=== PATIENT | female | born 1985 | race Caucasian/White ===

== ENCOUNTER 2019-05-18 19:25 | Emergency (ER) | payer OTHER ==
[2019-05-18] MEDS ORDERED: Albuterol/Ipratropium 3.0-0.5 MG/3 ML Neb Soln NEB ONE (19:28)
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
[2019-05-18] MEDS ORDERED: methylPREDNISolone Sodium Succinate 125 MG/2 ML SDV IM ONE (20:13)
[2019-05-18] MEDS ORDERED: Take Home: Albuterol 6.7 GM Inhaler, 1 Inhaler Pack INH ONE (20:21)
[2019-05-18] MEDS ORDERED: Take Home: predniSONE 20 MG, 2 Tab Pack PO ONE (20:24)
[2019-05-18] MEDS ORDERED: Levalbuterol HCl 1.25 MG/0.5 ML Neb NEB ONE (20:30)
== END 2019-05-18 21:02 | disposition home or self-care (01) ==
LOC: VM.ED 19:25
DX: J45.41 Moderate persistent asthma with (acute) exacerbation (principal); F15.10 Other stimulant abuse, uncomplicated; F17.210 Nicotine dependence, cigarettes, uncomplicated; Z88.0 Allergy status to penicillin
CPT/HCPCS: 81025; 94640; 96372; 99285; A9270; J2930; 99284-GF; J7620-GY

== ENCOUNTER 2019-07-30 19:55 | Emergency (ER) | payer SELFPAY ==
[2019-07-30] MEDS ORDERED: Albuterol/Ipratropium 3.0-0.5 MG/3 ML Neb Soln NEB ONE (20:09)
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
== END 2019-07-30 20:43 | disposition home or self-care (01) ==
LOC: VM.ED 19:55
DX: R06.2 Wheezing (principal); J45.909 Unspecified asthma, uncomplicated; Z88.0 Allergy status to penicillin
CPT/HCPCS: 94640; 99283-GF; 99284; J7620-GY

== ENCOUNTER 2019-10-01 09:29 | Emergency (ER) | payer SELFPAY ==
[2019-10-01] MEDS ORDERED: Sodium Chloride 0.9% 10 ML Syringe FLUSH PRN (09:55)
[2019-10-01] MEDS ORDERED: Albuterol/Ipratropium 3.0-0.5 MG/3 ML Neb Soln NEB ONE (09:55)
[2019-10-01] MEDS ORDERED: methylPREDNISolone Sodium Succinate 125 MG/2 ML SDV IVPUSH ONE (09:58)
--- NOTE | 2019-10-01 10:36 | CR ---
[id number] RAD/RAD Chest PA or AP 1V EXAM: SINGLE VIEW CHEST. INDICATION: COUGH HYPOXIA COMPARISON: NO PREVIOUS SIMILAR EXAM IS AVAILABLE FINDINGS: The lungs are clear and hyperaerated Old right rib fractures are seen The cardiomediastinal contour is normal IMPRESSION: NO PNEUMONIA POSSIBLE AIRWAY DISEASE Vitor Bronson MD 10/01/19 1157 Thank you for allowing us to participate in the care of your patient.
[2019-10-01] MEDS ORDERED: Levalbuterol HCl 1.25 MG/0.5 ML Neb NEB ONE (10:37)
[2019-10-01 11:01] LABS: ANION GAP 15.2 mmol/L (10-20); CHLORIDE,CL 107 mmol/L (98-107); SODIUM,NA 146 mmol/L (136-145)
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
== END 2019-10-01 11:28 | disposition home or self-care (01) ==
LOC: VM.ED 09:29
DX: J45.41 Moderate persistent asthma with (acute) exacerbation (principal); F17.210 Nicotine dependence, cigarettes, uncomplicated; Z98.51 Tubal ligation status; Z88.0 Allergy status to penicillin
CPT/HCPCS: 36415; 71045; 80053; 83735; 83880; 84484; 85025; 85379; 85610; 86140; 87040; 87804; 87804-59; 93005; 94640; 96374; 99284-GF; 99285-25; J2930; J7620-GY

== ENCOUNTER 2019-10-07 08:26 | Emergency (ER) | payer MEDICAID ==
[2019-10-07] MEDS ORDERED: methylPREDNISolone Sodium Succinate 125 MG/2 ML SDV IVPUSH ONE (08:40)
[2019-10-07] MEDS ORDERED: Albuterol 0.083% 2.5 MG/3 ML Neb Soln NEB ONE (08:41)
[2019-10-07] MEDS ORDERED: Sodium Chloride 0.9% 10 ML Syringe FLUSH PRN (08:41)
[2019-10-07] MEDS ORDERED: Sodium Chloride 0.9% 1,000 ML IV ONE (08:43)
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
--- NOTE | 2019-10-07 09:24 | CR ---
[id number] RAD/RAD Chest PA or AP 1V EXAM: RAD Chest PA or AP 1V INDICATION: SHORT OF BREATH. COMPARISON: October 01, 2019. DISCUSSION: Cardiomediastinal silhouette is normal in size and contour. No infiltrate, effusion, pneumothorax, or edema. Chronic healed right-sided rib fractures, similar to the prior examination. IMPRESSION: No acute findings. Noel Dupree MD 10/07/19 0923 Thank you for allowing us to participate in the care of your patient.
[2019-10-07 09:31] LABS: CHLORIDE,CL 106 mmol/L (98-107); SODIUM,NA 143 mmol/L (136-145)
[2019-10-07 09:32] LABS: ANION GAP 18.1 mmol/L (10-20)
[2019-10-07 09:40] LABS: BUPRENORPHINE,URINE NEGATIVE (NEGATIVE); MARIJUANA,URINE NEGATIVE (NEGATIVE); METHYLENEDIOXYMETHAMP,UR NEGATIVE (NEGATIVE); PHENCYCLIDINE,URINE NEGATIVE (NEGATIVE)
== END 2019-10-07 10:17 | disposition home or self-care (01) ==
LOC: VM.ED 08:26
DX: J45.41 Moderate persistent asthma with (acute) exacerbation (principal); F15.90 Other stimulant use, unspecified, uncomplicated; F41.9 Anxiety disorder, unspecified; R00.0 Tachycardia, unspecified; Z88.0 Allergy status to penicillin
CPT/HCPCS: 36415; 71045; 80053; 80305-QW; 83735; 84484; 85025; 87804; 87804-59; 93005; 93010; 94640; 96361; 96374; 99284-GF; 99285-25; G0480; J2930; J7030; J7613-GY

== ENCOUNTER 2020-01-09 01:15 | Emergency (ER) | payer SELFPAY ==
[2020-01-09 02:15] LABS: CHLORIDE,CL 111 mmol/L (98-107); SODIUM,NA 147 mmol/L (136-145)
[2020-01-09 02:17] LABS: ACETAMINOPHEN 0 ug/ml (10-30); ANION GAP 16.4 mmol/L (10-20)
[2020-01-09 02:26] LABS: BARBITURATE SCREEN,URINE NEGATIVE (NEGATIVE); BENZODIAZEPINES SCREEN,URINE NEGATIVE (NEGATIVE); EDDP,URINE SCREEN NEGATIVE (NEGATIVE); METHAMPHETAMINE SCREEN, URINE POSITIVE (NEGATIVE); TCA SCREEN,URINE NEGATIVE (NEGATIVE); THC SCREEN,URINE 50 NG/ML NEGATIVE (NEGATIVE)
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
[2020-01-09] MEDS ORDERED: Albuterol/Ipratropium 3.0-0.5 MG/3 ML Neb Soln NEB ONE (02:33)
[2020-01-09] MEDS ORDERED: Dexamethasone 4 MG/ML SDV PO ONE (02:51)
--- NOTE | 2020-01-09 07:36 | CR ---
[id number] RAD/RAD Chest PA And Lateral EXAM: RAD Chest PA And Lateral CLINICAL DATA: COUGH. ELEVATED WHITE BLOOD CELL COUNT COMPARISON: CORRELATION IS MADE WITH OCTOBER 07, 2019 FINDINGS: The lungs are clear. Old right rib fractures are seen The cardiomediastinal contour is normal. The regional bones and soft tissues are unremarkable. IMPRESSION: NO ACUTE PROCESS. Vitor Bronson MD 01/09/20 0735 Thank you for allowing us to participate in the care of your patient.
== END 2020-01-09 03:13 | disposition home or self-care (01) ==
LOC: VM.ED 01:15
DX: J45.41 Moderate persistent asthma with (acute) exacerbation (principal); F10.10 Alcohol abuse, uncomplicated; F15.10 Other stimulant abuse, uncomplicated; F17.210 Nicotine dependence, cigarettes, uncomplicated; Z88.0 Allergy status to penicillin
CPT/HCPCS: 36415; 71046; 80053; 80305; 80307; 81001; 81025; 83605; 85025; 99285; J1100; 94640; 99284-GF; J7620-GY

== ENCOUNTER 2020-03-18 23:30 | Emergency (ER) | payer SELFPAY ==
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
[2020-03-19 00:45] LABS: CHLORIDE,CL 106 mmol/L (98-107); SODIUM,NA 139 mmol/L (136-145)
[2020-03-19 00:47] LABS: ANION GAP 16.6 mmol/L (10-20)
--- NOTE | 2020-03-19 08:22 | CT ---
[id number] CT/CT Head WO IV EXAM: CT Head WO IV CLINICAL DATA: TRAUMA COMPARISON: NO PREVIOUS SIMILAR EXAM IS AVAILABLE FOR COMPARISON. FINDINGS: Nasal fractures are identified Consider CT imaging of the facial bones There is no mass or mass effect. There is no hemorrhage or hydrocephalus. There are no extra-axial fluid collections. There are no sites of abnormal attenuation. IMPRESSION: NASAL FRACTURES NO PLAIN CT EVIDENCE OF ACUTE INTRACRANIAL PROCESS. Vitor Bronson MD 03/19/20 0821 Thank you for allowing us to participate in the care of your patient.
== END 2020-03-19 01:15 | disposition home or self-care (01) ==
LOC: VM.ED 23:30
DX: S02.2XXA Fracture of nasal bones, initial encounter for closed fracture (principal); F10.120 Alcohol abuse with intoxication, uncomplicated; J45.909 Unspecified asthma, uncomplicated; F15.10 Other stimulant abuse, uncomplicated; Z88.0 Allergy status to penicillin; Y04.0XXA Assault by unarmed brawl or fight, initial encounter; Y90.7 Blood alcohol level of 200-239 mg/100 ml
CPT/HCPCS: 36415; 70450; 80053; 80307; 85025; 85610; 99284-25; 99284-GF

== ENCOUNTER 2020-04-21 12:32 | Emergency (ER) | payer SELFPAY ==
[2020-04-21] MEDS ORDERED: Albuterol/Ipratropium 3.0-0.5 MG/3 ML Neb Soln NEB ONE (13:03)
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
== END 2020-04-21 14:30 | disposition home or self-care (01) ==
LOC: VM.ED 12:32
DX: J45.909 Unspecified asthma, uncomplicated (principal); F17.210 Nicotine dependence, cigarettes, uncomplicated; Z20.828 Contact with and (suspected) exposure to other viral communicable diseases; Z98.890 Other specified postprocedural states; Z88.0 Allergy status to penicillin
CPT/HCPCS: 94640; 99284-GF; 99285-25; J7620-GY; U0002

== ENCOUNTER 2020-05-08 09:05 | Emergency (ER) | payer MEDICAID ==
[2020-05-08] MEDS ORDERED: Albuterol/Ipratropium 3.0-0.5 MG/3 ML Neb Soln NEB ONE (09:25)
[2020-05-08] MEDS ORDERED: Albuterol 0.083% 2.5 MG/3 ML Neb Soln NEB ONE (09:28)
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
== END 2020-05-08 10:09 | disposition home or self-care (01) ==
LOC: VM.ED 09:05
DX: J45.41 Moderate persistent asthma with (acute) exacerbation (principal); Z88.0 Allergy status to penicillin; Z79.899 Other long term (current) drug therapy
CPT/HCPCS: 94640; 99284-25; J7613-GY; J7620-GY

== ENCOUNTER 2020-05-22 14:53 | Emergency (ER) | payer SELFPAY ==
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
== END 2020-05-22 15:33 | disposition home or self-care (01) ==
LOC: VM.ED 14:53
DX: K02.9 Dental caries, unspecified (principal); F17.210 Nicotine dependence, cigarettes, uncomplicated; J45.909 Unspecified asthma, uncomplicated; Z88.0 Allergy status to penicillin; Z98.890 Other specified postprocedural states
CPT/HCPCS: 99282

== ENCOUNTER 2021-03-04 09:02 | Emergency (ER) | payer SELFPAY ==
[2021-03-04] MEDS ORDERED: Bupivacaine 0.5% 30 ML SDV INJECT PRN (09:24)
[2021-03-04] MEDS ORDERED: Lidocaine 1% with EPINEPHrine 1:100,000 20 ML MDV INFILT STA (09:24)
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
[2021-03-04] MEDS ORDERED: Clindamycin HCl 150 MG Cap PO ONE (09:57)
[2021-03-04] MEDS ORDERED: Orphenadrine 60 MG/2 ML Inj IM STA (10:04)
[2021-03-04] MEDS ORDERED: Ketorolac 30 MG/ML SDV IM ONE (10:04)
== END 2021-03-04 10:31 | disposition home or self-care (01) ==
LOC: VM.ED 09:02
DX: K02.9 Dental caries, unspecified (principal); S16.1XXA Strain of muscle, fascia and tendon at neck level, initial encounter; I10 Essential (primary) hypertension; Z72.0 Tobacco use; Z88.0 Allergy status to penicillin; X58.XXXA Exposure to other specified factors, initial encounter
CPT/HCPCS: 96372; 99283; 99284; A9270-GY; J1885; J2360; J3490

== ENCOUNTER 2021-03-24 03:35 | Emergency (ER) | payer MEDICAID ==
[2021-03-24] MEDS: Albuterol/Ipratropium 3.0-0.5 MG/3 ML Neb Soln NEB ONE (03:37)
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
[2021-03-24] MEDS ORDERED: [UNRECOGNIZED DRUG - OTHER] PO ONE (04:09)
[2021-03-24] MEDS: Albuterol 0.083% 2.5 MG/3 ML Neb Soln NEB ONE (04:10)
[2021-03-24] MEDS: Dexamethasone 4 MG Tab PO ONE (04:26)
[2021-03-24] MEDS: Take Home: Albuterol 18 GM Inhaler, 1 Inhaler Pack INH PRN (04:33)
[2021-03-24] MEDS: Dexamethasone 4 MG Tab ONE (04:39)
== END 2021-03-24 04:36 | disposition home or self-care (01) ==
LOC: VM.ED 03:35
DX: J45.41 Moderate persistent asthma with (acute) exacerbation (principal); Z88.0 Allergy status to penicillin
CPT/HCPCS: 94640; 99283; 99284-25; A9270-GY; J7613-GY; J7620-GY; J8540

== ENCOUNTER 2021-08-06 22:42 | Emergency (ER) | payer SELFPAY ==
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
[2021-08-07 00:22] LABS: CHLORIDE,CL 108 mmol/L (98-107); SODIUM,NA 146 mmol/L (136-145)
[2021-08-07 00:23] LABS: ANION GAP 19.2 mmol/L (5-15)
[2021-08-07 00:35] LABS: BARBITURATE SCREEN,URINE NEGATIVE (NEGATIVE); BENZODIAZEPINES SCREEN,URINE NEGATIVE (NEGATIVE); BUPRENORPHINE SCREEN,URINE NEGATIVE (NEGATIVE); THC SCREEN,URINE 50 NG/ML NEGATIVE (NEGATIVE)
[2021-08-07] MEDS ORDERED: Potassium Chloride 20 MEQ Tab.ER PO ONE (00:36)
[2021-08-07 00:37] LABS: METHAMPHETAMINE SCREEN, URINE POSITIVE (NEGATIVE)
[2021-08-07] MEDS ORDERED: Take Home: Nitrofurantoin Monohydrate/Macrocrystalline 100 MG, 2 Cap Pack PO ONE (00:37)
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
== END 2021-08-07 00:49 | disposition home or self-care (01) ==
LOC: VM.ED 22:42
DX: S06.0X0A Concussion without loss of consciousness, initial encounter (principal); E87.6 Hypokalemia; F10.120 Alcohol abuse with intoxication, uncomplicated; N39.0 Urinary tract infection, site not specified; J45.909 Unspecified asthma, uncomplicated; Z88.0 Allergy status to penicillin; Z79.899 Other long term (current) drug therapy; Y04.0XXA Assault by unarmed brawl or fight, initial encounter
CPT/HCPCS: 36415; 70450; 72125; 80053; 80305-QW; 80307; 81001; 81025; 83735; 85025; 99284-25; A9270-GY

== ENCOUNTER 2021-10-03 06:10 | Emergency (ER) | payer SELFPAY ==
[2021-10-03] MEDS ORDERED: Ketorolac 30 MG/ML SDV IM ONE (06:25)
[2021-10-03] MEDS ORDERED: Ondansetron 4 MG/2 ML SDV IM ONE (06:25)
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
[2021-10-03] MEDS ORDERED: Take Home: Clindamycin HCl 150 MG Cap, 6 Cap Pack PO ONE (06:51)
== END 2021-10-03 07:16 | disposition home or self-care (01) ==
LOC: VM.ED 06:10
DX: K03.81 Cracked tooth (principal); J45.909 Unspecified asthma, uncomplicated; Z88.0 Allergy status to penicillin
CPT/HCPCS: 96372; 99282; 99283; A9270-GY; J1885; J2405

== ENCOUNTER 2021-11-16 13:37 | Inpatient (IN) | payer SELFPAY ==
[2021-11-16] MEDS ORDERED: Sodium Chloride 0.9% 10 ML Syringe FLUSH PRN (13:58)
[2021-11-16] MEDS: Sodium Chloride 0.9% 1,000 ML IV SCH ×2 (14:05→16:30)
[2021-11-16 14:18] LABS: CHLORIDE,CL 94 mmol/L (98-107); SODIUM,NA 133 mmol/L (136-145)
[2021-11-16 14:21] LABS: ACETAMINOPHEN 0 ug/ml (10-30); ANION GAP 18.9 mmol/L (5-15)
[2021-11-16] MEDS ORDERED: cefTRIAXone 2 GM Vial IVPUSH ONE (14:47)
[2021-11-16] MEDS ORDERED: Potassium Chloride Riders 10 MEQ in Premix Bag 1 BAG IV ONE (15:04)
[2021-11-16 15:23] LABS: CORONAVIRUS COVID-19 NAA NEGATIVE (NEGATIVE); RESPIRATORY SYNCYTIAL VIR NAA NEGATIVE (NEGATIVE)
[2021-11-16 16:14] LABS: BARBITURATE SCREEN,URINE NEGATIVE (NEGATIVE); BENZODIAZEPINES SCREEN,URINE NEGATIVE (NEGATIVE); METHAMPHETAMINE SCREEN, URINE POSITIVE (NEGATIVE); THC SCREEN,URINE 50 NG/ML NEGATIVE (NEGATIVE)
[2021-11-16 16:15] LABS: BUPRENORPHINE SCREEN,URINE NEGATIVE (NEGATIVE)
[2021-11-16] MEDS ORDERED: LORazepam 1 MG Tab PO PRN (17:44)
[2021-11-16] MEDS ORDERED: Metoprolol Tartrate 25 MG Tab PO PRN (17:44)
[2021-11-16] MEDS ORDERED: Ondansetron 4 MG/2 ML SDV IVPUSH PRN (17:44)
[2021-11-16] MEDS ORDERED: cloNIDine 0.1 MG Tab PO PRN (17:44)
[2021-11-16] MEDS: Doxycycline 100 MG Cap PO SCH ×2 (18:18→20:02)
[2021-11-16] MEDS: Folic Acid 1 MG Tab PO SCH (18:32)
[2021-11-16] MEDS: Thiamine 100 MG Tab PO SCH (18:32)
[2021-11-16] MEDS: Multivitamins with Iron/Calcium/Folic Acid/Minerals Tab PO SCH (18:32)
[2021-11-16] MEDS: Magnesium Oxide 400 MG Tab PO ONE (18:32)
[2021-11-16] MEDS: Pantoprazole 40 MG Vial IV SCH (18:33)
[2021-11-16] MEDS: D5 1/2 NS w/ 20 mEq/L KCl 1,000 ML IV SCH (19:05)
[2021-11-17] MEDS: D5 1/2 NS w/ 20 mEq/L KCl 1,000 ML IV SCH (01:23)
[2021-11-17 07:08] LABS: CHLORIDE,CL 104 mmol/L (98-107); SODIUM,NA 136 mmol/L (136-145)
[2021-11-17] MEDS: Pantoprazole 40 MG Vial IV SCH (07:23)
[2021-11-17] MEDS: Doxycycline 100 MG Cap PO SCH ×3 (07:24→19:42)
[2021-11-17] MEDS: Folic Acid 1 MG Tab PO SCH (07:24)
[2021-11-17] MEDS: Multivitamins with Iron/Calcium/Folic Acid/Minerals Tab PO SCH (07:24)
[2021-11-17] MEDS: Thiamine 100 MG Tab PO SCH (07:29)
[2021-11-17] MEDS ORDERED: Magnesium Sulfate/Water 2 GM in Premix Bag 1 BAG IV ONE (07:49)
[2021-11-17] MEDS: Lactated Ringers 1,000 ML IV SCH ×2 (08:54→19:11)
[2021-11-17] MEDS: Potassium Chloride 20 MEQ Tab.ER PO SCH (08:54)
[2021-11-17] MEDS: Ferrous Sulfate 325 MG Tab PO SCH ×2 (10:05→17:33)
[2021-11-17] MEDS ORDERED: Potassium Chloride Riders 20 MEQ in Premix Bag 1 BAG IV SCH (11:00)
[2021-11-17] MEDS: cefTRIAXone 2 GM Vial IVPUSH SCH (14:40)
[2021-11-17] MEDS ORDERED: Albuterol/Ipratropium 3.0-0.5 MG/3 ML Neb Soln NEB PRN (14:42)
[2021-11-17] MEDS: Budesonide 0.25 MG/2 ML Neb Susp NEB SCH ×2 (15:30→19:42)
[2021-11-17] MEDS: predniSONE 20 MG Tab PO SCH (16:03)
[2021-11-18] MEDS: Lactated Ringers 1,000 ML IV SCH ×2 (03:11→11:09)
[2021-11-18] MEDS: Budesonide 0.25 MG/2 ML Neb Susp NEB SCH ×2 (07:11→19:51)
[2021-11-18] MEDS: Ferrous Sulfate 325 MG Tab PO SCH ×2 (07:22→17:20)
[2021-11-18] MEDS: Thiamine 100 MG Tab PO SCH (07:22)
[2021-11-18] MEDS: Potassium Chloride 20 MEQ Tab.ER PO SCH (07:22)
[2021-11-18] MEDS: Folic Acid 1 MG Tab PO SCH (07:22)
[2021-11-18] MEDS: predniSONE 20 MG Tab PO SCH (07:22)
[2021-11-18] MEDS: Multivitamins with Iron/Calcium/Folic Acid/Minerals Tab PO SCH (07:22)
[2021-11-18] MEDS: Pantoprazole 40 MG Vial IV SCH (07:24)
[2021-11-18] MEDS: cefTRIAXone 2 GM Vial IVPUSH SCH (07:24)
[2021-11-18 07:26] LABS: ANION GAP 9.7 mmol/L (5-15); CHLORIDE,CL 107 mmol/L (98-107); SODIUM,NA 139 mmol/L (136-145)
[2021-11-18] MEDS: Doxycycline 100 MG Cap PO SCH ×2 (10:35→19:51)
[2021-11-18 11:06] LABS: C.TRACHOMATIS BY TMA Negative (Negative); N.GONORRHOEAE BY TMA Negative (Negative)
[2021-11-18] MEDS: Magnesium Chloride 64 MG Tab.ER PO SCH (13:41)
[2021-11-18] MEDS ORDERED: LORazepam 0.5 MG Tab PO ONE (15:52)
[2021-11-18] MEDS ORDERED: Haloperidol 5 MG Tab PO PRN (18:08)
[2021-11-18] MEDS ORDERED: Haloperidol Lactate 5 MG/ML SDV IM PRN (18:10)
[2021-11-18] MEDS ORDERED: LORazepam 1 MG Tab PO ONE (20:15)
[2021-11-18] MEDS: Nicotine 7 MG/24 Hr Patch TRDERM SCH (20:24)
[2021-11-19 07:33] LABS: CHLORIDE,CL 108 mmol/L (98-107); SODIUM,NA 141 mmol/L (136-145)
[2021-11-19 07:37] LABS: ANION GAP 7.2 mmol/L (5-15)
[2021-11-19] MEDS: Ferrous Sulfate 325 MG Tab PO SCH (07:50)
[2021-11-19] MEDS: Magnesium Chloride 64 MG Tab.ER PO SCH (07:50)
[2021-11-19] MEDS: Potassium Chloride 20 MEQ Tab.ER PO SCH (07:50)
[2021-11-19] MEDS: predniSONE 20 MG Tab PO SCH (07:50)
[2021-11-19] MEDS: Thiamine 100 MG Tab PO SCH (07:51)
[2021-11-19] MEDS: Multivitamins with Iron/Calcium/Folic Acid/Minerals Tab PO SCH (07:51)
[2021-11-19] MEDS: Nicotine 7 MG/24 Hr Patch TRDERM SCH (07:52)
[2021-11-19] MEDS: cefTRIAXone 2 GM Vial IVPUSH SCH (08:04)
[2021-11-19] MEDS: Pantoprazole 40 MG Vial IV SCH (08:04)
[2021-11-19] MEDS ORDERED: Benzocaine/Cetylpyridinium/Menthol Lozenge MUCMEM PRN ×2 (09:22→09:23)
[2021-11-19] MEDS: Doxycycline 100 MG Cap PO SCH (09:28)
[2021-11-19] MEDS: Budesonide 0.25 MG/2 ML Neb Susp NEB SCH (09:28)
[2021-11-19] MEDS ORDERED: Albuterol HFA 18 Gm Inhaler INH SCH (10:00)
== END 2021-11-19 12:40 | DRG 871 ==
LOC: VM.ED 13:37 → VM.MS 16:32
PROVIDERS: ADMIT Physician Assistant; ATTEND Physician Assistant
DX: A41.9 Sepsis, unspecified organism (principal); J18.9 Pneumonia, unspecified organism; E87.2 Acidosis; N39.0 Urinary tract infection, site not specified; D64.9 Anemia, unspecified; E87.6 Hypokalemia; E83.42 Hypomagnesemia; F15.10 Other stimulant abuse, uncomplicated; E86.0 Dehydration; F10.10 Alcohol abuse, uncomplicated; Z88.0 Allergy status to penicillin; Z88.1 Allergy status to other antibiotic agents; J45.909 Unspecified asthma, uncomplicated; Z98.51 Tubal ligation status; F17.210 Nicotine dependence, cigarettes, uncomplicated; Z20.822 Contact with and (suspected) exposure to COVID-19
CPT/HCPCS: 0241U; 36415; 71046; 80048; 80053; 80143; 80305-QW; 80307; 81001; 81025; 82274; 82607; 82728; 82746; 83540; 83550; 83605; 83735; 84145; 85025; 86140; 87040; 87086; 87491; 87591; 94640; 94760; 96374; 96375; 99285-25; A9270-GY; C9113; J0696; J3475; J3480; J7030; J7120; J7512

== ENCOUNTER 2021-12-10 22:05 | Emergency (ER) | payer SELFPAY | END 2021-12-10 22:23 | disposition left against medical advice (07) | LOC: VM.ED 22:05 | DX: R68.84 Jaw pain (principal); Z88.0 Allergy status to penicillin | CPT/HCPCS: 99283; 99284 ==

== ENCOUNTER 2022-03-01 19:23 | Emergency (ER) | payer SELFPAY ==
[2022-03-01] MEDS ORDERED: Sodium Chloride 0.9% 10 ML Syringe FLUSH PRN (19:50)
[2022-03-01] MEDS ORDERED: Albuterol/Ipratropium 3.0-0.5 MG/3 ML Neb Soln NEB ONE (19:53)
[2022-03-01] MEDS ORDERED: methylPREDNISolone Sodium Succinate 125 MG/2 ML SDV IV ONE (19:53)
[2022-03-01] MEDS ORDERED: Sodium Chloride 0.9% 1,000 ML IV SCH (20:00)
[2022-03-01 20:24] LABS: BARBITURATE SCREEN,URINE NEGATIVE (NEGATIVE); BENZODIAZEPINES SCREEN,URINE NEGATIVE (NEGATIVE); BUPRENORPHINE SCREEN,URINE NEGATIVE (NEGATIVE)
[2022-03-01 20:25] LABS: METHAMPHETAMINE SCREEN, URINE POSITIVE (NEGATIVE); THC SCREEN,URINE 50 NG/ML NEGATIVE (NEGATIVE)
[2022-03-01 20:39] LABS: PTT,PARTIAL THROMBOPLSTIN TIME 22.8 SEC (20.5-30.9)
[2022-03-01 20:49] LABS: CHLORIDE,CL 105 mmol/L (98-107); SODIUM,NA 140 mmol/L (136-145)
[2022-03-01 21:06] LABS: ANION GAP 17.6 mmol/L (5-15)
[2022-03-01 21:12] LABS: CORONAVIRUS COVID-19 NAA NEGATIVE (NEGATIVE); RESPIRATORY SYNCYTIAL VIR NAA NEGATIVE (NEGATIVE)
[2022-03-01] MEDS ORDERED: Albuterol 0.083% 2.5 MG/3 ML Neb Soln NEB ONE (21:19)
[2022-03-01] MEDS ORDERED: Take Home: Albuterol 18 GM Inhaler, 1 Inhaler Pack INH PRN (21:24)
== END 2022-03-01 21:38 | disposition home or self-care (01) ==
LOC: VM.ED 19:23
DX: J45.41 Moderate persistent asthma with (acute) exacerbation (principal); Z88.0 Allergy status to penicillin; Z20.822 Contact with and (suspected) exposure to COVID-19
CPT/HCPCS: 0241U; 71045; 80053; 80305-QW; 80307; 81003; 81025; 83605; 83735; 83880; 84100; 84443; 84484; 85025; 85379; 85610; 85730; 86140; 93005; 93010; 96361; 96374; 99284; 99285-25; A9270-GY; J2930; J7030; J7613-GY; J7620-GY

== ENCOUNTER 2022-03-02 00:18 | Emergency (ER) | payer SELFPAY ==
[2022-03-02] MEDS: Lidocaine 1% 30 ML SDV INJECT ONE (01:22)
== END 2022-03-03 01:55 | disposition home or self-care (01) ==
LOC: VM.ED 00:18
DX: S01.81XA Laceration without foreign body of other part of head, initial encounter (principal); S51.811A Laceration without foreign body of right forearm, initial encounter; F10.129 Alcohol abuse with intoxication, unspecified; Z88.0 Allergy status to penicillin; Y90.8 Blood alcohol level of 240 mg/100 ml or more; X78.9XXA Intentional self-harm by unspecified sharp object, initial encounter
CPT/HCPCS: 12001; 12011; 36415; 80143; 80179; 80307; 84443; 99283; 99284-25

== ENCOUNTER 2022-03-10 19:54 | Emergency (ER) | payer SELFPAY ==
[2022-03-10] MEDS ORDERED: Lidocaine 1% 5 ML VIAL INJECT ONE (19:59)
== END 2022-03-10 20:50 | disposition home or self-care (01) ==
LOC: VM.ED 19:54
DX: S61.451A Open bite of right hand, initial encounter (principal); Z79.899 Other long term (current) drug therapy; Z88.0 Allergy status to penicillin; W54.0XXA Bitten by dog, initial encounter
CPT/HCPCS: 12001; 99282; 99282-25

== ENCOUNTER 2023-04-08 22:53 | Emergency (ER) | payer MEDICAID | END 2023-04-08 23:55 | disposition home or self-care (01) | LOC: VM.ED 22:53 | DX: S61.411A Laceration without foreign body of right hand, initial encounter (principal); J45.909 Unspecified asthma, uncomplicated; Z88.0 Allergy status to penicillin; W25.XXXA Contact with sharp glass, initial encounter | CPT/HCPCS: 12001; 99282 ==

== ENCOUNTER 2023-05-23 15:26 | Emergency (ER) | payer MEDICAID ==
[2023-05-23 16:04] LABS: BASOPHILS ABSOLUTE AUTO 0.1 x10^3/uL (0.0-0.2); BASOPHILS PERCENT AUTO 0.6 % (0.2-1.2); EOSINOPHILS ABSOLUTE AUTO 0.1 x10^3/uL (0.0-0.5); EOSINOPHILS PERCENT AUTO 0.7 % (0.0-4.0); HEMATOCRIT 34.7 % (33.0-47.0); HEMOGLOBIN 11.8 g/dL (12.0-16.0); IMMATURE GRAN ABSOLUTE AUTO 0.02 x10^3/uL (0.00-0.07); LYMPHOCYTES ABSOLUTE AUTO 2.6 x10^3/uL (1.0-4.8); LYMPHOCYTES PERCENT AUTO 20.9 % (25.0-50.0); MEAN CORPUSCULAR HEMOGLOBIN 27.8 pg (26.0-32.0); MEAN CORPUSCULAR VOLUME 81.6 fL (78.0-93.0); MONOCYTES ABSOLUTE AUTO 1.2 x10^3/uL (0.0-0.8); NEUTROPHILS ABSOLUTE AUTO 8.4 x10^3/uL (1.8-7.7); NEUTROPHILS PERCENT AUTO 67.6 % (50.0-80.0); RED BLOOD CELL COUNT 4.25 x10^6/uL (4.00-5.50); WHITE BLOOD CELL COUNT,WBC 12.4 x10^3/uL (4.0-10.0)
[2023-05-23] MEDS: Sodium Chloride 0.9% 1,000 ML IV ONE (16:09)
[2023-05-23 16:15] LABS: PLATELET COUNT,PLT 382 x10^3/uL (130-400)
[2023-05-23 16:21] LABS: ALANINE AMINOTRANSFERASE,ALT 52 U/L (14-59); ALBUMIN 3.9 g/dL (3.4-5.0); ALKALINE PHOSPHATASE 70 U/L (46-116); ASPARTATE AMNIOTRANSFERASE,AST 62 U/L (15-37); BILIRUBIN TOTAL 0.2 mg/dL (0.2-1.0); BLOOD UREA NITROGEN,BUN 13 mg/dL (7-18); CALCIUM 8.8 mg/dL (8.5-10.1); CARBON DIOXIDE,CO2 23 mmol/L (21-32); CHLORIDE,CL 101 mmol/L (98-107); CREATININE 0.7 mg/dL (0.55-1.02); ETHANOL BLOOD MEDICAL 192 mg/dL (0-3); GLUCOSE RANDOM 91 mg/dL (70-99); POTASSIUM,K 3.3 mmol/L (3.5-5.1); PROTEIN TOTAL,TP 7.8 g/dL (6.4-8.2); SODIUM,NA 133 mmol/L (136-145)
[2023-05-23 16:22] LABS: ANION GAP 12.3 mmol/L (5-15); ESTIMATED GFR 113 mL/min (>=60)
[2023-05-23 17:27] LABS: AMPHETAMINES SCREEN, URINE POSITIVE (NEGATIVE); BARBITURATE SCREEN,URINE NEGATIVE (NEGATIVE); BENZODIAZEPINES SCREEN,URINE NEGATIVE (NEGATIVE); BUPRENORPHINE SCREEN,URINE NEGATIVE (NEGATIVE); COCAINE METABOLITES,URINE NEGATIVE (NEGATIVE); METHADONE SCREEN, URINE NEGATIVE (NEGATIVE); METHAMPHETAMINE SCREEN, URINE POSITIVE (NEGATIVE); OXYCODONE SCREEN,URINE NEGATIVE (NEGATIVE); PCP SCREEN,URINE NEGATIVE (NEGATIVE); THC SCREEN,URINE 50 NG/ML NEGATIVE (NEGATIVE)
== END 2023-05-23 18:05 | disposition home or self-care (01) ==
LOC: VM.ED 15:26
DX: S00.83XA Contusion of other part of head, initial encounter (principal); F17.210 Nicotine dependence, cigarettes, uncomplicated; Z88.0 Allergy status to penicillin; Y04.2XXA Assault by strike against or bumped into by another person, initial encounter
CPT/HCPCS: 70486; 80053; 80305-QW; 80307; 85025; 99283; 99284; J7030

== ENCOUNTER 2023-06-17 06:50 | Emergency (ER) | payer OTHER, MEDICAID | END 2023-06-17 07:45 | disposition home or self-care (01) | LOC: VM.ED 06:50 | DX: S41.152A Open bite of left upper arm, initial encounter (principal); J45.909 Unspecified asthma, uncomplicated; Z88.0 Allergy status to penicillin; W54.0XXA Bitten by dog, initial encounter | CPT/HCPCS: 99283 ==

== ENCOUNTER 2023-08-26 09:45 | Emergency (ER) | payer MEDICAID ==
[2023-08-26] MEDS: Levalbuterol HCl 1.25 MG/3 ML Neb INH ONE (09:55)
[2023-08-26 10:14] LABS: BASOPHILS PERCENT AUTO 0.2 % (0.2-1.2); EOSINOPHILS ABSOLUTE AUTO 0.1 x10^3/uL (0.0-0.5); EOSINOPHILS PERCENT AUTO 0.4 % (0.0-4.0); HEMATOCRIT 42.4 % (33.0-47.0); HEMOGLOBIN 13.5 g/dL (12.0-16.0); IMMATURE GRAN ABSOLUTE AUTO 0.04 x10^3/uL (0.00-0.07); LYMPHOCYTES ABSOLUTE AUTO 1.2 x10^3/uL (1.0-4.8); LYMPHOCYTES PERCENT AUTO 7.3 % (25.0-50.0); MEAN CORPUSCULAR HEMOGLOBIN 26.4 pg (26.0-32.0); MEAN CORPUSCULAR HGB CONC 31.8 g/dL (32.0-36.0); MONOCYTES ABSOLUTE AUTO 0.6 x10^3/uL (0.0-0.8); MONOCYTES PERCENT AUTO 3.9 % (2.0-11.0); NEUTROPHILS ABSOLUTE AUTO 13.8 x10^3/uL (1.8-7.7); NEUTROPHILS PERCENT AUTO 87.9 % (50.0-80.0); PLATELET COUNT,PLT 444 x10^3/uL (130-400); RED BLOOD CELL COUNT 5.11 x10^6/uL (4.00-5.50); WHITE BLOOD CELL COUNT,WBC 15.7 x10^3/uL (4.0-10.0)
[2023-08-26 10:35] LABS: A/G RATIO 0.78; ALANINE AMINOTRANSFERASE,ALT 24 U/L (14-59); ALBUMIN 3.5 g/dL (3.4-5.0); ALKALINE PHOSPHATASE 62 U/L (46-116); ASPARTATE AMNIOTRANSFERASE,AST 14 U/L (15-37); BILIRUBIN TOTAL 0.2 mg/dL (0.2-1.0); BLOOD UREA NITROGEN,BUN 12 mg/dL (7-18); CALCIUM 9.3 mg/dL (8.5-10.1); CARBON DIOXIDE,CO2 26 mmol/L (21-32); CHLORIDE,CL 101 mmol/L (98-107); CREATININE 0.8 mg/dL (0.55-1.02); GLUCOSE RANDOM 102 mg/dL (70-99); POTASSIUM,K 3.1 mmol/L (3.5-5.1); SODIUM,NA 132 mmol/L (136-145)
[2023-08-26 10:40] LABS: ANION GAP 8.1 mmol/L (5-15); C-REACTIVE PROTEIN < 0.50 mg/dL (<=0.50); ESTIMATED GFR 97 mL/min (>=60)
[2023-08-26 11:01] LABS: CORONAVIRUS COVID-19 NAA NEGATIVE (NEGATIVE); INFLUENZA A NAA NEGATIVE (NEGATIVE); INFLUENZA B NAA NEGATIVE (NEGATIVE); RESPIRATORY SYNCYTIAL VIR NAA NEGATIVE (NEGATIVE)
== END 2023-08-26 11:14 | disposition home or self-care (01) ==
LOC: VM.ED 09:45
DX: J40 Bronchitis, not specified as acute or chronic (principal); F17.200 Nicotine dependence, unspecified, uncomplicated; J45.909 Unspecified asthma, uncomplicated; Z88.0 Allergy status to penicillin; Z79.899 Other long term (current) drug therapy; Z20.822 Contact with and (suspected) exposure to COVID-19
CPT/HCPCS: 0241U; 36415; 71046; 80053; 85025; 86140; 99285; J7612

== ENCOUNTER 2023-09-25 00:45 | Emergency (ER) | payer MEDICAID ==
[2023-09-25] MEDS ORDERED: cloNIDine 0.1 MG Tab PO ONE (01:32)
[2023-09-25 01:33] LABS: BASOPHILS ABSOLUTE AUTO 0.1 x10^3/uL (0.0-0.2); BASOPHILS PERCENT AUTO 0.5 % (0.2-1.2); EOSINOPHILS ABSOLUTE AUTO 0.2 x10^3/uL (0.0-0.5); EOSINOPHILS PERCENT AUTO 2.3 % (0.0-4.0); HEMOGLOBIN 12.5 g/dL (12.0-16.0); IMMATURE GRAN ABSOLUTE AUTO 0.05 x10^3/uL (0.00-0.07); LYMPHOCYTES ABSOLUTE AUTO 3.1 x10^3/uL (1.0-4.8); LYMPHOCYTES PERCENT AUTO 32.4 % (25.0-50.0); MEAN CORPUSCULAR HEMOGLOBIN 27.8 pg (26.0-32.0); MEAN CORPUSCULAR HGB CONC 32.9 g/dL (32.0-36.0); MEAN CORPUSCULAR VOLUME 84.4 fL (78.0-93.0); MONOCYTES ABSOLUTE AUTO 1.3 x10^3/uL (0.0-0.8); NEUTROPHILS ABSOLUTE AUTO 4.7 x10^3/uL (1.8-7.7); NEUTROPHILS PERCENT AUTO 50.3 % (50.0-80.0); PLATELET COUNT,PLT 359 x10^3/uL (130-400); WHITE BLOOD CELL COUNT,WBC 9.4 x10^3/uL (4.0-10.0)
[2023-09-25 01:48] LABS: A/G RATIO 0.84; ALANINE AMINOTRANSFERASE,ALT 38 U/L (14-59); ALBUMIN 3.2 g/dL (3.4-5.0); ALKALINE PHOSPHATASE 71 U/L (46-116); ANION GAP 17.7 mmol/L (5-15); ASPARTATE AMNIOTRANSFERASE,AST 37 U/L (15-37); BILIRUBIN TOTAL 0.1 mg/dL (0.2-1.0); BLOOD UREA NITROGEN,BUN 22 mg/dL (7-18); C-REACTIVE PROTEIN < 0.50 mg/dL (<=0.50); CALCIUM 8.2 mg/dL (8.5-10.1); CARBON DIOXIDE,CO2 22 mmol/L (21-32); CHLORIDE,CL 105 mmol/L (98-107); CREATININE 0.8 mg/dL (0.55-1.02); ESTIMATED GFR 97 mL/min (>=60); ETHANOL BLOOD MEDICAL 180 mg/dL (0-3); GLUCOSE RANDOM 103 mg/dL (70-99); POTASSIUM,K 3.7 mmol/L (3.5-5.1); SODIUM,NA 141 mmol/L (136-145)
[2023-09-25 01:54] LABS: APPEARANCE,URINE SLIGHTLY CLOUDY (CLEAR); BILIRUBIN,URINE NEGATIVE (NEGATIVE); COLOR,URINE LIGHT YELLOW (YELLOW); GLUCOSE,URINE NEGATIVE (NEGATIVE); KETONES,URINE NEGATIVE (NEGATIVE); LEUKOCYTE ESTERASE,URINE TRACE (NEGATIVE); NITRITE,URINE NEGATIVE (NEGATIVE); OCCULT BLOOD,URINE TRACE-LYSED (NEGATIVE); PH,URINE 5.5 (5.0-8.0); PROTEIN,URINE NEGATIVE (NEGATIVE); UROBILINOGEN,URINE 0.2 EU/dL (0.2)
[2023-09-25 01:58] LABS: AMPHETAMINES SCREEN, URINE POSITIVE (NEGATIVE); BARBITURATE SCREEN,URINE NEGATIVE (NEGATIVE); BENZODIAZEPINES SCREEN,URINE NEGATIVE (NEGATIVE); BUPRENORPHINE SCREEN,URINE NEGATIVE (NEGATIVE); COCAINE METABOLITES,URINE NEGATIVE (NEGATIVE); METHADONE SCREEN, URINE NEGATIVE (NEGATIVE); METHAMPHETAMINE SCREEN, URINE POSITIVE (NEGATIVE); OXYCODONE SCREEN,URINE NEGATIVE (NEGATIVE); PCP SCREEN,URINE NEGATIVE (NEGATIVE); THC SCREEN,URINE 50 NG/ML NEGATIVE (NEGATIVE)
[2023-09-25 02:00] LABS: BACTERIA,URINE FEW /HPF (NOT SEEN); MUCUS,URINE RARE /LPF (NOT SEEN); RBC,URINE 0-5 /HPF (NOT SEEN); SQUAMOUS EPITHELIAL CELLS,UR MODERATE /HPF (NOT SEEN)
== END 2023-09-25 02:25 ==
LOC: VM.ED 00:45
DX: R45.851 Suicidal ideations (principal); I10 Essential (primary) hypertension; Z02.89 Encounter for other administrative examinations; J45.909 Unspecified asthma, uncomplicated; Z88.0 Allergy status to penicillin; Z79.899 Other long term (current) drug therapy
CPT/HCPCS: 36415; 80053; 80305; 80307; 81001; 85025; 86140; 87086; 87088; 99283; A9270; 99284

== ENCOUNTER 2024-03-02 20:27 | Emergency (ER) | payer MEDICAID ==
[2024-03-02] MEDS: Propranolol 20 MG Tab PO ONE ×2 (21:02)
== END 2024-03-02 21:10 ==
LOC: VM.ED 20:27
DX: I10 Essential (primary) hypertension (principal); J45.909 Unspecified asthma, uncomplicated; F17.210 Nicotine dependence, cigarettes, uncomplicated; Z88.1 Allergy status to other antibiotic agents; Z88.0 Allergy status to penicillin; Z79.51 Long term (current) use of inhaled steroids; Z79.899 Other long term (current) drug therapy
CPT/HCPCS: 99283; A9270

== ENCOUNTER 2024-09-27 18:08 | Emergency (ER) | payer MEDICAID ==
[2024-09-27 18:45] LABS: BASOPHILS PERCENT AUTO 0.1 % (0.2-1.2); EOSINOPHILS ABSOLUTE AUTO 0.1 x10^3/uL (0.0-0.5); EOSINOPHILS PERCENT AUTO 0.3 % (0.0-4.0); HEMATOCRIT 38.6 % (33.0-47.0); IMMATURE GRAN ABSOLUTE AUTO 0.15 x10^3/uL (0.00-0.07); LYMPHOCYTES ABSOLUTE AUTO 2.7 x10^3/uL (1.0-4.8); LYMPHOCYTES PERCENT AUTO 16.7 % (25.0-50.0); MEAN CORPUSCULAR HEMOGLOBIN 29.1 pg (26.0-32.0); MEAN CORPUSCULAR HGB CONC 33.7 g/dL (32.0-36.0); MEAN CORPUSCULAR VOLUME 86.5 fL (78.0-93.0); MONOCYTES ABSOLUTE AUTO 1.7 x10^3/uL (0.0-0.8); MONOCYTES PERCENT AUTO 10.7 % (2.0-11.0); NEUTROPHILS ABSOLUTE AUTO 11.4 x10^3/uL (1.8-7.7); NEUTROPHILS PERCENT AUTO 71.3 % (50.0-80.0); PLATELET COUNT,PLT 344 x10^3/uL (130-400); RED BLOOD CELL COUNT 4.46 x10^6/uL (4.00-5.50)
[2024-09-27 18:51] LABS: AMPHETAMINES SCREEN, URINE NEGATIVE (NEGATIVE); BARBITURATE SCREEN,URINE NEGATIVE (NEGATIVE); BENZODIAZEPINES SCREEN,URINE NEGATIVE (NEGATIVE); BUPRENORPHINE SCREEN,URINE NEGATIVE (NEGATIVE); COCAINE METABOLITES,URINE NEGATIVE (NEGATIVE); METHADONE SCREEN, URINE NEGATIVE (NEGATIVE); METHAMPHETAMINE SCREEN, URINE NEGATIVE (NEGATIVE); OXYCODONE SCREEN,URINE NEGATIVE (NEGATIVE); PCP SCREEN,URINE NEGATIVE (NEGATIVE); THC SCREEN,URINE 50 NG/ML NEGATIVE (NEGATIVE)
[2024-09-27 19:00] LABS: A/G RATIO 0.8; ALBUMIN 3.3 g/dL (3.4-5.0); BILIRUBIN TOTAL 0.2 mg/dL (0.2-1.0); CALCIUM 9.1 mg/dL (8.5-10.1); CREATININE 0.7 mg/dL (0.55-1.02); EST CRCL DRUG DOSING (CG) 85.34 mL/min; POTASSIUM,K 3.9 mmol/L (3.5-5.1); PROTEIN TOTAL,TP 7.4 g/dL (6.4-8.2)
[2024-09-27 19:02] LABS: ANION GAP 14.9 mmol/L (5-15)
[2024-09-27 19:16] LABS: TSH ULTRASENSITIVE 4.061 uIU/mL (0.358-3.74)
[2024-09-27] MEDS ORDERED: cefTRIAXone 1 GM Vial IM ONE (20:26)
[2024-09-27] MEDS: cefTRIAXone 1 GM, Lidocaine 1% 2.1 ML IM ONE (20:42)
[2024-09-27] MEDS: Diphtheria,Pertussis(Acell),Tetanus Vaccine 0.5 ML Syringe IM ONE (21:08)
== END 2024-09-27 21:11 | disposition home or self-care (01) ==
LOC: VM.ED 18:08
DX: S51.851A Open bite of right forearm, initial encounter (principal); E03.9 Hypothyroidism, unspecified; F10.90 Alcohol use, unspecified, uncomplicated; J45.909 Unspecified asthma, uncomplicated; Z88.0 Allergy status to penicillin; Z79.51 Long term (current) use of inhaled steroids; Z79.899 Other long term (current) drug therapy; Y90.9 Presence of alcohol in blood, level not specified; W54.0XXA Bitten by dog, initial encounter; Z23 Encounter for immunization
CPT/HCPCS: 36415; 80053; 80305; 80307; 81025; 84443; 84484; 85025; 85379; 90471; 90715; 93005; 96372; 99285; J0696; 71046; J3490

== ENCOUNTER 2025-02-06 01:10 | Emergency (ER) | payer MEDICAID ==
[2025-02-06] MEDS: Metoprolol Succinate 25 MG Tab.ER PO ONE (02:00)
== END 2025-02-06 02:00 ==
LOC: VM.ED 01:10
DX: S00.03XA Contusion of scalp, initial encounter (principal); I10 Essential (primary) hypertension; T44.7X5A Adverse effect of beta-adrenoreceptor antagonists, initial encounter; J45.909 Unspecified asthma, uncomplicated; Z88.0 Allergy status to penicillin; Z88.1 Allergy status to other antibiotic agents; Z79.899 Other long term (current) drug therapy; Z79.51 Long term (current) use of inhaled steroids; X58.XXXA Exposure to other specified factors, initial encounter
CPT/HCPCS: 99284; A9270

== ENCOUNTER 2025-05-04 12:23 | Emergency (ER) | payer MEDICAID ==
[2025-05-04 12:55] LABS: BASOPHILS ABSOLUTE AUTO 0.1 x10^3/uL (0.0-0.2); BASOPHILS PERCENT AUTO 0.8 % (0.2-1.2); EOSINOPHILS ABSOLUTE AUTO 0.2 x10^3/uL (0.0-0.5); EOSINOPHILS PERCENT AUTO 2.2 % (0.0-4.0); IMMATURE GRAN ABSOLUTE AUTO 0.02 x10^3/uL (0.00-0.07); IMMATURE GRAN PERCENT AUTO 0.20 % (0.00-0.43); LYMPHOCYTES ABSOLUTE AUTO 2.1 x10^3/uL (1.0-4.8); LYMPHOCYTES PERCENT AUTO 23.8 % (25.0-50.0); MONOCYTES ABSOLUTE AUTO 1.2 x10^3/uL (0.0-0.8); MONOCYTES PERCENT AUTO 13.3 % (2.0-11.0); NEUTROPHILS ABSOLUTE AUTO 5.2 x10^3/uL (1.8-7.7); NEUTROPHILS PERCENT AUTO 59.7 % (50.0-80.0); PLATELET COUNT,PLT 365 x10^3/uL (130-400); RED BLOOD CELL COUNT 4.71 x10^6/uL (4.00-5.50); WHITE BLOOD CELL COUNT,WBC 8.7 x10^3/uL (4.0-10.0)
[2025-05-04 13:15] LABS: A/G RATIO 1.00; ALANINE AMINOTRANSFERASE,ALT 51 U/L (14-59); ASPARTATE AMNIOTRANSFERASE,AST 73 U/L (15-37); BILIRUBIN TOTAL 0.3 mg/dL (0.2-1.0); BLOOD UREA NITROGEN,BUN 6 mg/dL (7-18); CARBON DIOXIDE,CO2 21 mmol/L (21-32); CHLORIDE,CL 104 mmol/L (98-107); CREATININE 0.9 mg/dL (0.55-1.02); ETHANOL BLOOD MEDICAL 279 mg/dL (0-3); GLUCOSE RANDOM 93 mg/dL (70-99); POTASSIUM,K 3.2 mmol/L (3.5-5.1); PROTEIN TOTAL,TP 8.4 g/dL (6.4-8.2); SODIUM,NA 144 mmol/L (136-145)
[2025-05-04 13:16] LABS: ESTIMATED GFR 83 mL/min (>=60)
[2025-05-04] MEDS: Potassium Bicarbonate 25 MEQ Tab.EFF PO ONE (13:34)
[2025-05-04 13:38] LABS: APPEARANCE,URINE CLEAR (CLEAR); GLUCOSE,URINE NEGATIVE (NEGATIVE); OCCULT BLOOD,URINE MODERATE (NEGATIVE)
[2025-05-04 13:41] LABS: AMPHETAMINES SCREEN, URINE POSITIVE (NEGATIVE); METHAMPHETAMINE SCREEN, URINE POSITIVE (NEGATIVE)
[2025-05-04 13:42] LABS: BUPRENORPHINE SCREEN,URINE NEGATIVE (NEGATIVE); COCAINE METABOLITES,URINE NEGATIVE (NEGATIVE); METHADONE SCREEN, URINE NEGATIVE (NEGATIVE); OXYCODONE SCREEN,URINE NEGATIVE (NEGATIVE); PCP SCREEN,URINE NEGATIVE (NEGATIVE); THC SCREEN,URINE 50 NG/ML NEGATIVE (NEGATIVE)
[2025-05-04 13:46] LABS: SQUAMOUS EPITHELIAL CELLS,UR FEW /HPF (NOT SEEN)
== END 2025-05-04 13:57 ==
LOC: VM.ED 12:23
DX: Z02.89 Encounter for other administrative examinations (principal); R45.851 Suicidal ideations; E87.6 Hypokalemia; F10.10 Alcohol abuse, uncomplicated; Z88.0 Allergy status to penicillin; Z79.899 Other long term (current) drug therapy
CPT/HCPCS: 36415; 80053; 80143; 80179; 80305-QW; 80307; 81001; 85025; 99284; 99285; A9270-GY

== ENCOUNTER 2025-08-04 12:49 | Emergency (ER) | payer SELFPAY | END 2025-08-04 13:45 | LOC: VM.ED 12:49 | DX: S51.852A Open bite of left forearm, initial encounter (principal); J45.909 Unspecified asthma, uncomplicated; Z79.899 Other long term (current) drug therapy; Z88.0 Allergy status to penicillin; W54.0XXA Bitten by dog, initial encounter | CPT/HCPCS: 99283 ==